=== PATIENT | male | born 1960 ===

== ENCOUNTER → 2022-10-10 | Outpatient (CLI) | payer OTHER | LOC: LAB SHORT 14:43 → PLD 14:43 | DX: D48.5 Neoplasm of uncertain behavior of skin (principal) | CPT/HCPCS: 88305 ==

== ENCOUNTER → 2022-10-31 | Outpatient (CLI) | payer OTHER | LOC: LAB SHORT 15:14 → PLD 15:14 | DX: D48.5 Neoplasm of uncertain behavior of skin (principal) | CPT/HCPCS: 88305 ==